=== PATIENT | male | born 1960 | race Caucasian/White ===

== ENCOUNTER 2020-09-30 19:46 | Emergency (ER) | payer OTHER ==
[2020-09-30] MEDS ORDERED: Bacitracin Oint 1 GM U/D Packet TOP ONE (20:21)
[2020-09-30] MEDS ORDERED: Lidocaine 1% 30 ML SDV INJECT ONE (20:21)
[2020-09-30 20:49] VITALS: BP 131/81; PULSE 101
--- NOTE | 2020-09-30 21:13 | EDM.PDOC ---
ED HPI GENERAL MEDICAL PROBLEM - General Chief Complaint: Laceration Stated Complaint: CUT LEFT INDEX AND THUMB Time Seen by Provider: 09/30/20 20:15 Source of Information: Reports: Patient, RN History Limitations: Reports: No Limitations - History of Present Illness INITIAL COMMENTS - FREE TEXT/NARRATIVE: Laceration to left index tip from serrated knife while cutting bread.. Wound dressed and bleeding controlled on arrival. Last tetnus approximately 7 years prior. Treatments BUSINESS SYSTEMS ADVISOR: Reports: Dressing(s) Left Finger-Index Pain Score (Numeric/FACES): 3 - Related Data Allergies Allergy/AdvReac Type Severity Reaction Status Date / Time No Known Allergies Allergy Verified 09/30/20 20:49 Home Meds: Home Meds . [No Known Home Meds] 06/04/15 [History] Past Medical History - Past Health History Medical/Surgical History: Denies Medical/Surgical History Social & Family History - Family History Family Medical History: No Pertinent Family History - Tobacco Use Tobacco Use Status *Q: Never Tobacco User Second Hand Smoke Exposure: No - Caffeine Use Caffeine Use: Reports: Coffee - Recreational Drug Use Recreational Drug Use: No ED ROS GENERAL - Review of Systems Review Of Systems: Comprehensive ROS is negative, except as noted in HPI. ED EXAM, SKIN/RASH Exam: See Below Exam Limited By: No Limitations General Appearance: Alert, Mild Distress Ears: Normal External Exam, Hearing Grossly Normal Throat/Mouth: Normal Voice Head: Atraumatic, Normocephalic Neck: Normal Inspection Respiratory/Chest: No Respiratory Distress Cardiovascular: Normal Peripheral Pulses, Regular Rate, Rhythm Back Exam: Paraspinal Tenderness Neurological: Alert, Oriented, Normal Cognition Psychiatric: Normal Affect, Normal Mood Skin: Warm, Dry Location, Skin: Upper Extremity, Left (index tip, 7mm flap laceration) Associated features: Tenderness ED SKIN PROCEDURES - Laceration/Wound Repair Left Distal Digit - 2nd (Index) Appearance: Superficial Distal NVT: Neuro & Vascular Intact Local Anesthesia - Lidocaine (Xylocaine): 1% Plain Local Anesthetic Volume: 1cc Skin Prep: Chlorhexidine (Hibiciens), Saline Closed with: Sutures Lac/Wound length In cm: 0.7 Suture Size: 4-0 # of Sutures: 2 Suture Type: Nylon, Interrupted Drain Placement: No Sterile Dressing Applied: Nurse Tetanus Status Addressed: Yes Complications: No Course - Vital Signs Last Recorded V/S: Last Vital Signs Temp 98.4 F 04/02/21 20:00 Pulse 101 H 09/30/20 20:00 Resp 16 09/30/20 20:00 BP 131/81 09/30/20 20:00 Pulse Ox 95 09/30/20 20:00 - Orders/Labs/Meds Meds: Medications Discontinued Medications Generic Name Dose Route Start Last Admin Trade Name Gale PRN Reason Stop Dose Admin Bacitracin 1 dose 09/30/20 20:21 09/30/20 20:25 Bacitracin Oint 1 Gm U/D Packet TOP 09/30/20 20:22 1 dose ONETIME ONE Administration Lidocaine HCl 30 ml 09/30/20 20:21 09/30/20 20:25 Lidocaine 1% 30 Ml Sdv INJECT 09/30/20 20:22 30 ml ONETIME ONE Administration Departure - Departure Time of Disposition: 21:11 Disposition: Home, Self-Care 01 Condition: Good Clinical Impression: Broken skin - Discharge Information *PRESCRIPTION DRUG MONITORING PROGRAM REVIEWED*: No *COPY OF PRESCRIPTION DRUG MONITORING REPORT IN PATIENT GIL: No Instructions: Laceration Care, Adult, [id number], Sutures, Joby, or Adhesive Wound Closure, [id number] Forms: ED Department Discharge Additional Instructions: keep clean and dry, may shower and leopoldo after 24 hours clean with soap and water twice daily sutures out in clinic 10-14 days recheck if swelling redness or drainage from wound alternate tylenol and ibuprofen every 4 hours as needed for discomfort Sepsis Event Note (ED) - Evaluation Sepsis Screening Result: No Definite Risk - Focused Exam Vital Signs: Vital Signs Temp Pulse Resp BP Pulse Ox 09/30/20 20:00 98.4 F 101 H 16 131/81 95
== END 2020-09-30 21:16 | disposition home or self-care (01) ==
LOC: DL.ED 19:46
DX: S61.211A Laceration without foreign body of left index finger without damage to nail, initial encounter (principal); W26.0XXA Contact with knife, initial encounter
CPT/HCPCS: 12001; 99282; 99282-25

== ENCOUNTER 2021-08-07 06:27 | Day surgery (SDC) | payer OTHER ==
[~2021-08-07 06:27] MED LIST: Dextrose 5%-0.45% NaCl 1,000 ML IV SCH; Midazolam 1 MG/ML 2 ML SDV ONE; Sodium Chloride 0.9% 10 ML Syringe FLUSH PRN; fentaNYL 100 MCG/2 ML SDV ONE
[2021-08-07] MEDS ORDERED: fentaNYL 100 MCG/2 ML SDV IV ONE ×4 (06:28→07:58)
[2021-08-07] MEDS ORDERED: Midazolam 1 MG/ML 2 ML SDV IV ONE ×7 (06:28→07:57)
[2021-08-07 11:00] VITALS: BP 130/63; PULSE 84
== END 2021-08-07 10:15 | disposition home or self-care (01) ==
LOC: DL.ENDO 06:27
PROVIDERS: ATTEND Internal Medicine Gastroenterology
DX: Z12.11 Encounter for screening for malignant neoplasm of colon (principal); K64.8 Other hemorrhoids; Z86.010 Personal history of colon polyps
CPT/HCPCS: 45378; J2250; J3010; J7042